=== PATIENT | female | born 1985 | race Caucasian/White ===

== ENCOUNTER 2016-11-13 14:52 | Observation (INO) | payer BC ==
[2016-11-13] MEDS ORDERED: LORazepam INJ* 2 MG/ML 1 ML VIAL ONE ×2 (15:30→17:04)
[2016-11-13] MEDS ORDERED: LORazepam INJ* 2 MG/ML 1 ML VIAL IV PUSH ONE ×2 (15:43→17:12)
[2016-11-13] MEDS ORDERED: Acetaminophen SUPP* 650 MG SUPP ONE (15:44)
[2016-11-13] MEDS ORDERED: Acetaminophen SUPP* 650 MG SUPP PR ONE (15:44)
--- NOTE | 2016-11-13 16:32 | ED ---
I, Bob Veliz, scribed for Verónica Villegas MD on 11/13/16 at 1541 . Neurological HPI - HPI Summary HPI Summary: Pt is a 31 year old female presenting with 3 seizures today. Hx from mom as pt is postictal. Per mom, pt has had seizures since age 1. Pt has been evaluated at several hospitals including [facility]. pt is followed by Dr. Chowdhury. Pt is currently maintained on Tegretol as she has had sensitivities to other medications. Per mom, pt has a sensitivity to Soy and this is commonly the trigger to seizures. 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 Pt was at school today when she had a seizure. Pt woke and returned to baseline. Mom states BG checked by EMS and was normal. Pt signed off and mom sohan home. Mom states at home she had an additional seizure she witnessed and perhaps one when she mom went outside. Pt transported by EMS. Pt was in ED and I was called to room for active tonic/clonic seizure. pt was given Ativan. Mom states pt has not been sick although was noted to have a temp 100.8 in ED. Pt without recent congestion, sob, cough .Pt with a rash on her face mom states occurs when she eats soy. Mom also reports the [employer] of the college sent an email yesterday to faculty, staff and students that there was a student at [facility] with a dx of meningitis. Pt without known contacts. no flu vaccine this year. Pt ate a new food from [employer] yesterday and mom concerned contained soy. - History of Current Complaint Chief Complaint: EDSeizure Stated Complaint: ALLERGIC REACTION/SEIZURES Hx Obtained From: Family/Steam Tunnel Feeder Hx Last Menstrual Period: Jun 22, 2016 Onset/Duration: Sudden Onset, Started hours ago Timing: Intermittent Episodes Lasting: - 3-5min Seizure Severity: Moderate Number of Seizures: 4 Pain Intensity: 7 Frequency: Episodes Lasting ____ (in Mins/Days/Weeks/Years) Aggravating: Unknown, Fever Alleviating: Spontanious Resolution Associated Signs and Symptoms: Positive: Fever TPA Considered: No Related Hx: Seizure - Allergy/Home Medications Allergies/Adverse Reactions: Allergies Allergy/AdvReac Type Severity Reaction Status Date / Time Cephalosporins Allergy Unknown Verified 11/13/16 16:40 Reaction Details Lamotrigine [From Lamictal] Allergy Unknown Verified 11/13/16 16:40 Reaction Details Levetiracetam [From Keppra] Allergy Unknown Verified 11/13/16 16:40 Reaction Details Soy Allergy Allergy Rash Verified 07/07/16 18:01 Valproic Acid [From Depakote] Allergy Altered Verified 07/07/16 18:01 Mental Status Wheat Bran Allergy Rash Verified 07/07/16 18:01 dairy Allergy Rash Uncoded 07/07/16 18:01 Home Medications: Home Medications carBAMazepine TAB(*) [TEGretol TAB(*)] 200 mg PO BID 11/13/16 [History Confirmed 11/13/16] PMH/Surg Hx/FS Hx/Imm Hx Previously Healthy: No Endocrine/Hematology History: Denies: Hx Anticoagulant Therapy Respiratory History: Denies: Hx Asthma Neurological History: Reports: Hx Seizures Denies: Hx Transient Ischemic Attacks (TIA) - Surgical History Surgery Procedure, Year, and Place: None Infectious Disease History: No Infectious Disease History: Denies: Traveled Outside the [place] in Last 30 Days - Family History Known Family History: Positive: None Negative: Cardiac Disease Family History: no cardiovascular issues reported in family lineage - Social History Occupation: Employed Full-time Lives: Alone - currently with mom Alcohol Use: Occasionally Hx Substance Use: No Substance Use Type: Reports: None Hx Tobacco Use: No Smoking Status (MU): Never Smoked Tobacco Have You Smoked in the Last Year: No Review of Systems - ROS Summary Review of Systems Summary: limited second to pt postical on first exam Completed after exam of second exam Positive: Fever, Fatigue ENT: Negative Cardiovascular: Negative Negative: Chest Pain Negative: Shortness Of Breath, Cough Negative: Vomiting, Nausea Musculoskeletal: Negative Positive: Rash - facial rash - reports food allergy Neurological: Other - Seizures Psychological: Normal All Other Systems Reviewed And Are Negative: Yes Physical Exam Triage Information Reviewed: Yes Vital Signs On Initial Exam: Initial Vitals Temp Pulse Resp BP Pulse Ox 100.7 F 121 20 136/85 98 11/13/16 15:10 11/13/16 15:10 11/13/16 15:10 11/13/16 15:10 11/13/16 15:10 Vital Signs Reviewed: Yes Completion Of Physical Exam Limited Due To: Altered Mental Status - postictal, s /p ativan Skin: Positive: Warm, Skin Color Reflects Adequate Perfusion, Dry, Other - Pt with butterfly appearing rash on nasal bridge, cheeks - red, slightly raised Head/Face: Positive: Normal Head/Face Inspection Eyes: Positive: Normal, EOMI, CELESTE ENT: Positive: Pharynx normal, TMs normal. Negative: Nasal congestion Neck: Positive: Supple, Nontender, No Lymphadenopathy Respiratory/Lung Sounds: Positive: Clear to Auscultation, Breath Sounds Present. Negative: Wheezes Cardiovascular: Positive: Normal, RRR Abdomen Description: Positive: Nontender, No Organomegaly, Soft Bowel Sounds: Positive: Present Musculoskeletal: Positive: Normal, Strength/ROM Intact Neurological: Positive: Other - Pt post-ictal for tonic/clonic seizure s/p ativan - unable to cooperate with hx/exam Psychiatric: Positive: Other AVPU Assessment: Verbal (Reponds To) - [place] Coma Scale Best Eye Response: 3 - To Speech Best Motor Response: 5 - Purposeful Movement Best Verbal Response: 4 - Confused Coma Scale Total: 15 Procedures - Lumbar Puncture Procedural Sedation: no Position: Lateral Decubitus Aseptic Technique: Local Anesthesia, Lidocaine Anesthesia Used: 1.0% Lido Spinal Needle Used: 24 Gauge Lumbar Puncture Note: Consent obtained and signed by pt who A+Ox3 and mother at bedside risks and benefits discussed Time out completed 18:45 Pt placed in left lateral recumbent position, knees flexed Under sterile conditions, lumbar processes identified Placed 2 ml of 1% lidocaine Using landmarks, 24 gauge spinal need inserted. + entered space on 1st attempted Total 4ml clear spinal fluid across 4 bottles. stylette replaced and needle withdrawn. bandaid placed. Pt tolerated well Pt supine mom escorted back to room No immediate complications noted Diagnostics - Vital Signs Vital Signs Temp Pulse Resp BP Pulse Ox 11/13/16 15:10 100.7 F 121 20 136/85 98 - Laboratory Result Diagrams: 11/13/16 16:10 11/13/16 16:10 Lab Statement: Any lab studies that have been ordered have been reviewed, and results considered in the medical decision making process. - CT Brain CT CT Interpretation Completed By: Radiologist - IMPRESSION: No intracranial mass or hemorrhage is noted. Limited study due to lack of patient cooperation. Re-Evaluation - Re-Evaluation First Eval Re-Evaluation Time: 16:30 Comment: Pt awake, assisted with hx. Pt report mild headache and feeling fatigued. D/w awaiting labs and futher eval. Pt temp improved following APAP. Pt and mother feel strongly no additoinal seizure medication at this time - awaiting tegretol level. Will continue to monitor Second Eval Re-Evaluation Time: 17:00 Change: Worse - Pt with recurrent tonic/clonic sx - ATivan given. lasted 3 min. now postical. Pt incontinent to urine Will check CT head, d/w mom LP, will d/w neurology Third Eval Re-Evaluation Time: 17:45 Comment: Pt continues somulent. D/w mom regarding LP - mom requesting to speak with neurology first. Awaiting CT result. Will continue to monitor Fourth Eval Re-Evaluation Time: 18:10 Change: Improved Comment: CT neg acute process. Neurology at bedside. Pt awake and appropriate. Pt and mom okay with plan for LP - cosent reviewed and signed by pt and mom Fifth Eval Re-Evaluation Time: 19:00 Change: Improved - Pt tolerated procedure well Refusing abx pending LP results If pt again with sz, okay for fosphenytoin as recommended by neurology Pt also consents to abx (not ceftriaxone) if + LP Course/Dx - Course Course Of Treatment: Pt seized again at approximately 17:00. She was administered Ativam. Assessment/Plan: Pt with h/o seizures, on tegretol. Pt with recurrent 4 seizures today. Pt also noted to have low grade temp. Pt works in college environment and received a warning email regarding meningitis case in community. Pt did not receive flu vaccine. Mom resistant to additional seizure medications at this time. Will check labs, IVF, APAP, urine, , cbc/cmp , tele, close monitoring - Diagnoses Provider Diagnoses: Recurrent seizures, Fever - Physician Notifications Discussed Care of Patient With: Dr. Solano [id number] - will eval pt, recommend fosphytoin, agree with LP. Dr Villegas [id number] - Will accept pt admission - aware LP results pending Instructed by Provider To: Admit As Inpatient - Critical Care Time Critical Care Time: 30-74 min Discharge - Discharge Plan Condition: Fair Disposition: ADMITTED TO [facility] documentation as recorded by the Jose Alfredo troncoso Adam accurately reflects the service I personally performed and the decisions made by me, Verónica Villegas MD.
[2016-11-13 16:43] LABS: Albumin 3.8 g/dL (3.2-5.2); BUN/Creatinine Ratio 15.5 (8-20); Calcium 8.4 mg/dL (8.6-10.3); EGFR African American 100.4 (>60); EGFR Non-African American 78.1 (>60); Globulin 2.5 g/dL (2-4); Magnesium 2.4 mg/dL (1.9-2.7); Potassium 3.7 mmol/L (3.5-5.0); Total Bilirubin 0.3 mg/dL (0.2-1.0); Total Protein 6.3 g/dL (6.4-8.9)
[2016-11-13 17:06] LABS: Carbamazepine 7.9 mcg/mL (4.0-12.0)
[2016-11-13 17:10] LABS: Hematocrit 36 % (35-47); Hemoglobin 11.9 g/dl (12.0-16.0); Mean Corpuscular HGB Conc 33 g/dl (31-36); Mean Corpuscular Hemoglobin 35 pg (27-31); Mean Platelet Volume 8 um3 (7.4-10.4); Red Blood Count 3.39 10^6/ul (4.0-5.4); Red Cell Distribution Width 13 % (10.5-15); White Blood Count 9.7 10^3/ul (3.5-10.8)
[2016-11-13 17:11] LABS: Add Diff/Slide Review? Slide Review Added; Comments Flag Yes; Mean Corpuscular Volume 105 fL (80-97)
[2016-11-13] MEDS ORDERED: NS 0.9% 1000 ML* 1,000 ML IV ONE (17:26)
--- NOTE | 2016-11-13 18:11 | RAD ---
Indication: Seizure-like activity. CT of the brain was performed without IV contrast. Motion artifact in left cooperation limits examination. Ventricular structures are midline. No midline shift is noted. The extra-axial spaces are unremarkable. There is no evidence of intracranial mass or hemorrhage. No other high or low density lesions are identified. Mastoid air cells and paranasal sinuses are otherwise unremarkable. IMPRESSION: No intracranial mass or hemorrhage is noted. Limited study due to lack of patient cooperation.
[2016-11-13] MEDS ORDERED: Acetaminophen TAB* 325 MG PO ONE (18:50)
[2016-11-13] MEDS ORDERED: NS 0.9% 1000 ML* 2,000 ML IV ONE (19:03)
[2016-11-13 19:13] LABS: Body Fluid Appearance Clear
[2016-11-13 19:17] LABS: Body Fluid Appearance Clear
[2016-11-13 19:23] LABS: CSF Glucose 84 mg/dL (40-70)
[2016-11-13 19:29] LABS: BF RBC Count #1 0; BF RBC Count #2 0; BF WBC Count #1 0; BF WBC Count #2 0; Body Fluid WBC 0 /mcL; RBC counts within 6%? Yes; WBC counts within 15%? Yes
[2016-11-13 19:44] LABS: BF RBC Count #1 405; BF RBC Count #2 391; BF WBC Count #1 0; BF WBC Count #2 0; Body Fluid WBC 0 /mcL; WBC counts within 15%? Yes
[2016-11-13 19:45] LABS: Body Fluid Total Cells Counted 1; RBC counts within 6%? Yes
--- NOTE | 2016-11-13 20:02 | CONSULT ---
Consult Consult: 11/13/16 neurology consult 31 yo RHF w/ longstanding seizure disorder, presenting with multiple recurrent seizures today. She is on CMZ (dose unknown; states takes bid, with an acute therapeutic level of 7.9) as her maintenance anti epileptic; apparently trials of several other AEDs a number of years ago (LTG, VPA, LEV) were brief and intolerance limited. I reviewed several [address] Taylor; they were overall similar, noting CMZ used in a 6-800MG total daily range, split bid , with 7-800mg dizziness limited remotely. He also noted a perception by the patient and/or mother re seizures brought on by GI or food issues, that she had negative testing for celiac, and had seen multiple specialists (allergy, endo, derm) for rashes. Her mother thinks the seizures are brought on by consuming soy containing foods, and she has a facial rash. She had her first seizure at 1 years of age, was put on CMZ a few years later for focal seizures (mother and patient cannot clarify diagnosis further, or prior workup), then from 3rd-11th grade was seizure free off meds. Prior to today, her last seizure was 2-3 years ago, she was at [facility] at the time ; she had seizure related workup at [facility] in 2010. She works and drives. Her epilepsy workup is unknown to me. She follows with Dr Chowdhury; her mother suggests prior evals at [facility] and in [facility] (perhaps 5 years ago), as well as more remote neuro care as a child in [place], [place] and [place]. She apparently had a witnessed (? convulsive; no clear description) seizure at work today. Her mother brought her home, where she had a second episode, this one consisting of staring, getting red in the face and stiffening. She was brought to the ED, where she had 2 separate convulsive episodes, one with urine incontinence, witnessed by her mother and the ED; she was loaded with benzos. She was initially febrile on arrival, then defervesced. Her mother had concerns re LP and loading a second AED prior to neuro involvement formally. Her mother also suggested that she had complained of not feeling well and thought she had low blood sugar (no formal reading and no history of diabetes however). Allergies/Meds - per mar PMH - per hpi; no surgeries or other medical diseases FH - no epilepsy or seizures SH - teacher; no tobacco; etoh or drugs; accompanied by mother, who provides much of history ROS - 10 point review limited by altered mental status/limited cooperation general Examination: no apparent distress, no edema, female of stated age, malar erythematous rash on cheeks, bridge of nose, chin Neurologic Examination Mental Status: sleepy but work easily, told me name and knew she was in a hospital but could not name it; affect flat, no clear neglect, fluent speech but mumbled and made unclear comments at times Cranial Nerves: Funduscopy and formal field testing cooperation limited, pupils reactive and symmetric, otherwise III-XII intact Motor: normal bulk, tone and power save initial left biceps/triceps poor effort vs weakness; no drift, involuntary movements or tremor Sensory: vibration and touch are intact Reflexes: 2 throughout symmetrically. Plantar responses are equivocal to flexor Coordination: finger to nose is accurate Gait: deferred Serologies: LFTs, bun/cr are all normal or negative; CBC ok save MCV 105, acidotic, Na 125 CSF WBC 4 1, G 84, P 28, gram stain neg (labs returning post initial consult) Priors: ESR and NATY nl in 2011 Imaging: Head CT reviewed and negative, albeit somewhat motion limited (prior 2011 negative per report as well) Impression: 31 yo RHF w/ longstanding ? localization related seizure disorder, presenting with multiple recurrent seizures today despite therapeutic dose of maintenance CMZ. Her exam is modestly cooperation limited and likely post ictal; she has received benzos as well; her exam and GEAR FINISHER imaging are non localizing. She is hyponatremic, has a facial rash (mother suggests latter is food allergy related ) and was initially febrile; the ED and I concurred with: 1. CSF analysis to rule out bacterial meningitis 2. loading of a second AED - given her reported prior intolerance to other IV agents such as LEV and VPA; we chose phenytoin 20mg/kg load; then can start 100mg tid po vs IV depending on mental status 3. gentle correction of Na; unclear if SIADH or alternate cause 4. will update Dr Chowdhury and obtain further background history in am
[2016-11-13 20:12] LABS: Urine Bacteria 1+ (Absent); Urine Bilirubin Negative (Negative); Urine Glucose Negative (Negative); Urine Nitrite Negative (Negative)
[2016-11-13] MEDS ORDERED: carBAMazepine TAB(*) 200 MG PO SCH (23:00)
[2016-11-14] MEDS: NS 0.9% 1000 ML* 1,000 ML IV SCH ×2 (00:09→10:43)
[2016-11-14 05:37] LABS: BUN/Creatinine Ratio 8.5 (8-20); Calcium 8.3 mg/dL (8.6-10.3); EGFR African American 121.9 (>60); EGFR Non-African American 94.8 (>60); Potassium 3.4 mmol/L (3.5-5.0)
--- NOTE | 2016-11-14 08:36 | HP ---
HISTORY AND PHYSICAL: DATE OF ADMISSION: 11/13/16 PRIMARY CARE PHYSICIAN: Dr. Igor Welch. CHIEF COMPLAINT: Seizure. HISTORY OF PRESENT ILLNESS: The patient is a 31-year-old woman who apparently, at work today, experienced a grand mal seizure. She feels this was secondary to her sugar being low and recently having some ham and soy products which seem to have affected her. In fact, she says that the ham she just had gave her a significant rash on her face. She then went her to apartment where she stays with her mother and had two subsequent seizures in front of her mother who brought her to the ER because of this. She had no tongue bitting, no urinary and no bowel incontinence. She was, however, somewhat confused afterwards. In the ER, the patient did have a Tegretol level, which was unremarkable. She has had no other recent infections or anything else to explain why she had lowered her seizure threshold. The patient was seen in consult already by Neurology and had an LP which was unremarkable. PAST MEDICAL HISTORY: Significant for seizure disorder as noted. ALLERGIES: CEPHALOSPORINS, LAMICTAL, KEPPRA, SOY ALLERGIES, VALPROIC ACID, WHEAT BREAD, AND DAIRY. CURRENT MEDICATIONS: Tegretol 400 mg twice daily. FAMILY HISTORY: Mother alive at 60 and well. Father alive, 73, has hypertension. She is an only child. SOCIAL HISTORY: No tobacco, occasional wine, no recreational drug use. She is a teacher at [employer]. She is not . She has no children. REVIEW OF SYSTEMS: A 14-point review of systems was completed with the patient. All pertinent positives and negatives are in the history of present illness, otherwise it is negative. PHYSICAL EXAMINATION GENERAL: A pleasant woman lying in bed, in no acute distress. VITAL SIGNS: Temperature 99.3 degrees, heart rate 95 beats per minute, respiratory rate 23 breaths per minute, pulse ox 98%, blood pressure 108/63. HEENT: Normocephalic, atraumatic. Pupils equal, round, and reactive to light. Moist mucous membranes. NECK: Supple. No JVD, bruits, palpable thyroid, or lymphadenopathy. CHEST: Clear to auscultation and percussion bilaterally. CARDIOVASCULAR: S1 and S2 appreciated. Regular rate and rhythm. ABDOMEN: Positive bowel sounds in all 4 quadrants. Soft, nontender, and nondistended. EXTREMITIES: No cyanosis, clubbing, or edema; +2 peripheral pulses bilaterally. NEURO: Alert and oriented x3. Moves all extremities. SKIN: Erythematous rash on her forehead and cheeks that appears quite angry. DIAGNOSTIC STUDIES/LAB DATA: White count 9.7, hemoglobin 11.9, hematocrit 36, platelets 157. Sodium 125, potassium 3.7, chloride 93, CO2 16, BUN 13, creatinine 0.84, and glucose 120. UA has +3 WBC's, +3 RBC's, plus squamous cells and epithelial cells are present. CSF shows no cells. Tegretol within normal limits. Flu was negative. Brain CT shows no intracranial mass or hemorrhages noted. Limited study due to lack of the patient's cooperation. ASSESSMENT AND PLAN: 1. Seizure. The patient is unwilling to take a second antiepileptic drug at this time. I explained to her that seizures can actually be fatal, and I prefer her not to have another one. She states she will only take it if she does have another seizure tonight. She understands the risk of not taking the same. 2. Possible urinary tract infection. Again discussed with the patient. She does not want to take an antibiotic either. Again, she understands the risk of not treating. This may have lowered her threshold. 3. FEN. Regular diet. 4. DVT prophylaxis. She is young and ambulatory. 5. The patient is a full code. TIME SPENT: Over 75 minutes were spent on this H and P, more than 40 minutes of which were spent in direct [id number] contact with the patient, evaluation , physical exam, counseling, and coordination of care. CC: Dr. Igor Welch.* [id number]/[facility] #: [id number] [facility] HOSPITALBassem
[2016-11-14] MEDS ORDERED: carBAMazepine TAB(*) 200 MG PO SCH (09:00)
[2016-11-14] MEDS ORDERED: CARBAMAZEPINE 200 MG PO SCH (09:07)
--- NOTE | 2016-11-14 09:55 | PN ---
Progress Note - Progress Note SOAP: 11/14/16 neurology follow up 31 yo RHF w/ longstanding seizure disorder (on cmz; follows with dr jimenez), presenting yesterday with multiple recurrent seizures. Overnight, no further events. Back to baseline; does not recall seizures yesterday besides not feeling quite right at work prior to first one. Denies aura in general. Recalls seeing Dr Oscar Denise at [facility] ? circa 2011; having some testing that was not definitive; another eval/opinion at [place] around the same time, results unknown. Unclear to me if ever had LTM. Spoke with Dr Jimenez by phone, and with patient, on cmz 400mg bid at baseline, compliant and med is well tolerated ; has some med and food allergies or sensitivities and was intolerant of several other AED trials as per my consult. Exam non localizing Na 125 137; ua appears dirty but nit/LE essentially negative No updated csf tests - 0 wbc, 400 rbc Impression: 31 yo RHF w/ longstanding ? localization related seizure disorder, presenting with multiple recurrent seizures yesterday despite therapeutic dose of maintenance CMZ. She had hyponatremia on arrival that has rapidly corrected; whether the initial value was spurious, or reflected siadh, cmz effect, etc is unclear. She has a facial rash that has occurred in the past, apparently been worked up, and which her mother suggests is food allergy related. She was initially febrile, and had an LP by the ED that appears negative preliminarily for bacterial meningitis. She is back to baseline, and as long as csf tests remain negative, should be neurologically stable for discharge and follow up with Dr Jimenez. Longer term her options might include further CMZ titration (level yest was middling) vs adding on or swapping out to a different agent (several remote trials of common agents were apparently tolerance limited in the past). 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 She will also need to restrict driving; the exact duration will depend on her treatment response and is to be determined by her and Dr Jimenez; we reviewed that [facility] recommends a year of voluntary restriction after a seizure.
[2016-11-14 16:42] VITALS: BP 102/71
--- NOTE | 2016-11-14 22:28 | DS ---
DISCHARGE SUMMARY: DATE OF ADMISSION: 11/13/16 DATE OF DISCHARGE: 11/14/16 PRIMARY CARE PROVIDER: Dr. Igor Welch. PRIMARY NEUROLOGIST: Dr. Chowdhury. CONSULTING NEUROLOGIST: Dr. Berger. DISCHARGING PROVIDER: SNEHA Espinoza SUPERVISING PHYSICIAN: Dr. Lillian Otero.* (DICTATED BY SNEHA ESPINOZA) PRIMARY DISCHARGE DIAGNOSIS: Seizure. SECONDARY DISCHARGE DIAGNOSES: 1. Hyponatremia - unsure if initial reading represented a lab error but sodium rapidly corrected. 2. Urinary tract infection with 50,000 to 75,000 Escherichia coli. 3. Fever. 4. Multiple allergies. 5. Facial rash. DISCHARGE MEDICATIONS: Tegretol 400 mg p.o. b.i.d. Medication changes: None. HOSPITAL IMAGIN. CT of the brain shows no intracranial mass or hemorrhage. No other acute findings. 2. EKG shows sinus rhythm with rate of approximately 120 beats per minute. HOSPITAL COURSE: This is a 31-year-old female with known seizure disorder and multiple environmental and food allergies, who presented to the emergency department after multiple seizures yesterday. The patient has multiple food allergies and had recently started using a new salad dressing and noted a facial rash that developed on Friday, which can be typical for her allergy symptoms. Then, yesterday while at work experienced a seizure and then two additional ones at home and two in the emergency department. Her seizure disorder has historically been well controlled on Tegretol and she was followed by Dr. Chowdhury. It is several years since her last seizure. The patient and her mother explained that historically her seizures have been allergy mediated and generally when she has exposure to a new allergen, she has had prior seizures. The patient reports compliance with her antiepileptics and reports no other new medications. The patient was admitted to observation overnight and had no new neurologic symptoms or recurrent seizures. The patient was resistant to initiating any additional antiepileptics during her hospital stay or at the time of discharge. She was seen by consulting neurologist, Dr. Berger, who had suggested increasing her Tegretol or trialing an adjunct medication. The patient was resistant to both of these ideas. Of note, the patient had intermittent fever during her hospitalization. She underwent lumbar puncture, which was unremarkable. She has no focal complaints. Her urinalysis was suggestive of a urinary tract infection with leuk esterase and white blood cells present. Culture grew 50,000 to 75,000 colonies of E. coli. Due to the patient's multiple allergies, she is quite resistant to the idea of initiating an antibiotic that may not be absolutely necessary. Due to low colony counts, antibiotics were avoided. Recommended adequate hydration and to return for reevaluation if she develops any symptoms consistent with urinary tract infection. DISPOSITION: The patient is being discharged from the hospital without any changes to her home medications. She would like to discuss this with her primary neurologist before initiating any change. Of note, she was hyponatremic during her hospital stay but this corrected quite rapidly. Initial sodium was 125 and corrected to 137 on the day of discharge. It seems that one of those lab values is likely inaccurate and recommended repeating basic metabolic panel along with Tegretol levels in approximately 3 to 5 days. SNEHA ESPINOZA CC: Dr. Igor Welch; Dr. Chowdhury * [id number]/[facility] #: [id number] [facility]
== END 2016-11-14 17:25 | disposition home or self-care (01) ==
LOC: ED 14:52 → MEDTELE 21:06
PROVIDERS: ADMIT Internal Medicine; ATTEND Hospitalist
DX: G40.909 Epilepsy, unspecified, not intractable, without status epilepticus (principal); E87.1 Hypo-osmolality and hyponatremia; N39.0 Urinary tract infection, site not specified; B96.20 Unspecified Escherichia coli [E. coli] as the cause of diseases classified elsewhere; R50.9 Fever, unspecified; R21 Rash and other nonspecific skin eruption; Z23 Encounter for immunization
CPT/HCPCS: 36415; 70450; 80048; 80053; 80156; 81003; 81015; 82945; 83735; 84157; 85025; 86703; 87040; 87070; 87077; 87086; 87186; 87205; 87502; 89051; 96374; 99285; A9270-GY; G0378; J2060

== ENCOUNTER 2018-02-22 15:52 | Emergency (ER) | payer BC ==
[2018-02-22] MEDS ORDERED: NS 0.9% 1000 ML* 1,000 ML IV SCH (16:15)
[2018-02-22 16:42] LABS: ABS Basophils 0 10^3/ul (0-0.2); ABS Eosinophils 0 10^3/ul (0-0.6); ABS Lymphocytes 0.5 10^3/ul (1.0-4.8); ABS Monocytes 0.4 10^3/ul (0-0.8); ABS Nucleated RBC 0 10^3/ul; Eosinophil % 0.3 % (0-6); Hematocrit 43 % (35-47); Hemoglobin 14.9 g/dl (12.0-16.0); Lymphocyte % 10.4 % (25-47); Mean Corpuscular HGB Conc 35 g/dl (31-36); Mean Corpuscular Hemoglobin 35 pg (27-31); Mean Corpuscular Volume 103 fL (80-97); Mean Platelet Volume 8.5 um3 (7.4-10.4); Nucleated Red Blood Cells % 0; Platelet Count 208 10^3/ul (150-450); Red Cell Distribution Width 13 % (10.5-15)
[2018-02-22 16:46] LABS: INR 0.92 (0.77-1.02)
[2018-02-22 16:56] LABS: EGFR Non-African American 82.1 (>60)
[2018-02-22 17:21] LABS: Urine Appearance Clear; Urine Blood Negative (Negative); Urine Color Yellow; Urine Ketones Negative (Negative); Urine Protein 1+(30 mg/dL) (Negative); Urine Specific Gravity 1.015 (1.010-1.030); Urine Urobilinogen Negative (Negative)
--- NOTE | 2018-02-22 17:31 | ED ---
Alysha Alberts Emily, scribed for Charlie Grant MD on 02/22/18 at 1636 . Complex/Multi-Sys Presentation - HPI Summary HPI Summary: This patient is a 32 year old F BIBA to [facility] accompanied by mother with a chief complaint of seizure like activity that began at approximately 1500. The patient rates the pain 0/10 in severity. Symptoms aggravated by nothing. Symptoms alleviated by nothing. Patient reports numbness in fourth and fifth right fingers and diarrhea. The patient denies abd pain, any changes in sleep, fever, chills, and nasal discharge. Mother reports that upon patients waking this morning, she was in a brain fog . Per mother, the patient became tonic this afternoon and experienced one seizure like episode lasting about 2 minutes, and after being assisted to the couch had a second seizure like episode. Mother states that the brain fog is an allergic reaction to food. Mother reports that the patients seizure like episodes that occurred today are not similar to previous seizures. Patient reports a history of seizures. Mother reports that there are drug users nearby, who smoke drugs, to the patients apartment. The mother is concerned that there was secondary smoke from these drug users that resulted in the brain fog or seizures. The patient reports she is on Tegretol 400 mg twice a day for her seizures. She reports that her last seizure was over one year ago. - History Of Current Complaint Time Seen by Provider: 02/22/18 16:04 Hx Obtained From: Patient Onset/Duration: Sudden Onset, Lasting Minutes, Resolved Timing: Intermittent, Lasting:, Minutes Severity Currently: Moderate Severity Initially: Mild Aggravating Factor(s): Nothing Alleviating Factor(s): Nothing Associated Signs And Symptoms: Positive: Other - Positive numbness in fourth and fifth right fingers and diarrhea. Negative abd pain, any changes in sleep, fever, chills, and nasal discharge. - Allergies/Home Medications Allergies/Adverse Reactions: Allergies Allergy/AdvReac Type Severity Reaction Status Date / Time Cephalosporins Allergy Unknown Verified 02/22/18 16:02 Reaction Details lamotrigine [From Lamictal] Allergy Unknown Verified 02/22/18 16:02 Reaction Details levetiracetam [From Keppra] Allergy Unknown Verified 02/22/18 16:02 Reaction Details milk Allergy Rash Verified 02/22/18 16:02 soy Allergy Rash Verified 06/03/18 16:02 valproic acid Allergy Altered Verified 02/22/18 16:02 Mental Status wheat Allergy Rash Verified 02/22/18 16:02 PMH/Surg Hx/FS Hx/Imm Hx Previously Healthy: No Endocrine/Hematology History: Denies: Hx Anticoagulant Therapy Respiratory History: Denies: Hx Asthma Sensory History: Reports: Hx Contacts or Glasses - contacts Opthamlomology History: Reports: Hx Contacts or Glasses - contacts Neurological History: Reports: Hx Seizures Denies: Hx Transient Ischemic Attacks (TIA) - Surgical History Surgery Procedure, Year, and Place: None Infectious Disease History: No Infectious Disease History: Denies: Traveled Outside the [place] in Last 30 Days - Family History Known Family History: Negative: Cardiac Disease Family History: no cardiovascular issues reported in family lineage - Social History Occupation: Employed Full-time Lives: Alone Alcohol Use: Daily Alcohol Amount: 2 glasses of wine per night Hx Substance Use: No Substance Use Type: Reports: None Hx Tobacco Use: No Smoking Status (MU): Never Smoked Tobacco Have You Smoked in the Last Year: No Review of Systems Negative: Fever, Chills Negative: Nasal Discharge Positive: Diarrhea. Negative: Abdominal Pain Neurological: Other - Positive seizure like activity. Negative changes in sleep Positive: Numbness All Other Systems Reviewed And Are Negative: Yes Physical Exam - Summary Physical Exam Summary: General: well-appearing, no pain distress Skin: warm, color reflects adequate perfusion, dry Head: normal Eyes: EOMI, CELESTE ENT: normal Neck: supple, nontender Respiratory: CTA, breath sounds present Cardiovascular: RRR Abdomen: soft, nontender Bowel: present Musculoskeletal: Patient reports decreased sensation in fourth and fifth fingers. Good sensation and ROM. strength/ROM intact Neurological: sensory/motor intact, A&O x3 Psychological: affect/mood appropriate Triage Information Reviewed: Yes Vital Signs On Initial Exam: Initial Vitals Temp Pulse Resp BP Pulse Ox 100 F 98 18 136/86 100 02/22/18 16:02 02/22/18 16:02 02/22/18 16:02 02/22/18 16:02 02/22/18 16:02 Vital Signs Reviewed: Yes Diagnostics - Vital Signs Vital Signs Temp Pulse Resp BP Pulse Ox 02/22/18 16:02 100 F 98 18 136/86 100 - Laboratory Lab Results: Lab Results 02/22/18 02/22/18 02/22/18 Range/Units 16:31 16:31 16:31 WBC 5.0 (3.5-10.8) 10^3/ul RBC 4.20 (4.0-5.4) 10^6/ul Hgb 14.9 (12.0-16.0) g/dl Hct 43 (35-47) % MCV 103 H (80-97) fL MCH 35 H (27-31) pg MCHC 35 (31-36) g/dl RDW 13 (10.5-15) % Plt Count 208 (150-450) 10^3/ul MPV 8.5 (7.4-10.4) um3 Neut % (Auto) 81.0 (38-83) % Lymph % (Auto) 10.4 L (25-47) % [place] % (Auto) 7.8 H (0-7) % Eos % (Auto) 0.3 (0-6) % Baso % (Auto) 0.5 (0-2) % Absolute Neuts (auto) 4.0 (1.5-7.7) 10^3/ul Absolute Lymphs (auto) 0.5 L (1.0-4.8) 10^3/ul Absolute Monos (auto) 0.4 (0-0.8) 10^3/ul Absolute Eos (auto) 0 (0-0.6) 10^3/ul Absolute Basos (auto) 0 (0-0.2) 10^3/ul Absolute Nucleated RBC 0 10^3/ul Nucleated RBC % 0 INR (Anticoag Therapy) 0.92 (0.77-1.02) APTT 26.3 (26.0-36.3) seconds Sodium 130 L (139-145) mmol/L Potassium Pending Chloride 95 L (101-111) mmol/L Carbon Dioxide 25 (22-32) mmol/L Anion Gap Pending BUN 14 (6-24) mg/dL Creatinine 0.80 (0.51-0.95) mg/dL Est GFR ( Amer) 105.6 (>60) Est GFR (Non-Af Amer) 82.1 (>60) BUN/Creatinine Ratio 17.5 (8-20) Glucose 129 H (70-100) mg/dL Lactic Acid (0.5-2.0) mmol/L Calcium 9.2 (8.6-10.3) mg/dL Total Bilirubin 0.50 (0.2-1.0) mg/dL AST Pending ALT 25 (7-52) U/L Alkaline Phosphatase 49 (34-104) U/L Total Creatine Kinase 157 (10-223) U/L CK-MB (CK-2) 1.7 (0.6-6.3) ng/mL C-Reactive Protein 1.19 (< 5.00) mg/L Total Protein 8.3 (6.4-8.9) g/dL Albumin 5.0 (3.2-5.2) g/dL Globulin 3.3 (2-4) g/dL Albumin/Globulin Ratio 1.5 (1-3) TSH 3.52 (0.34-5.60) mcIU/mL Beta HCG, Quant < 0.60 mIU/mL Urine Color Urine Appearance Urine pH (5-9) Ur Specific [place] (1.010-1.030) Urine Protein (Negative) Urine Ketones (Negative) Urine Blood (Negative) Urine Nitrate (Negative) Urine Bilirubin (Negative) Urine Urobilinogen (Negative) Ur Leukocyte Esterase (Negative) Urine WBC (Auto) (Absent) Urine RBC (Auto) (Absent) Ur Squamous Epith Cells (Absent) Urine Bacteria (Absent) Urine Glucose (Negative) Urine Ascorbic Acid (Negative) Salicylates < 2.50 (<30) mg/dL Acetaminophen < 15 mcg/mL Carbamazepine 13.9 H (4.0-12.0) mcg/mL Serum Alcohol < 10 (<10) mg/dL 02/22/18 02/22/18 Range/Units 16:31 17:00 WBC (3.5-10.8) 10^3/ul RBC (4.0-5.4) 10^6/ul Hgb (12.0-16.0) g/dl Hct (35-47) % MCV (80-97) fL MCH (27-31) pg MCHC (31-36) g/dl RDW (10.5-15) % Plt Count (150-450) 10^3/ul MPV (7.4-10.4) um3 Neut % (Auto) (38-83) % Lymph % (Auto) (25-47) % [place] % (Auto) (0-7) % Eos % (Auto) (0-6) % Baso % (Auto) (0-2) % Absolute Neuts (auto) (1.5-7.7) 10^3/ul Absolute Lymphs (auto) (1.0-4.8) 10^3/ul Absolute Monos (auto) (0-0.8) 10^3/ul Absolute Eos (auto) (0-0.6) 10^3/ul Absolute Basos (auto) (0-0.2) 10^3/ul Absolute Nucleated RBC 10^3/ul Nucleated RBC % INR (Anticoag Therapy) (0.77-1.02) APTT (26.0-36.3) seconds Sodium (139-145) mmol/L Potassium Chloride (101-111) mmol/L Carbon Dioxide (22-32) mmol/L Anion Gap BUN (6-24) mg/dL Creatinine (0.51-0.95) mg/dL Est GFR ( Amer) (>60) Est GFR (Non-Af Amer) (>60) BUN/Creatinine Ratio (8-20) Glucose (70-100) mg/dL Lactic Acid 2.4 H* (0.5-2.0) mmol/L Calcium (8.6-10.3) mg/dL Total Bilirubin (0.2-1.0) mg/dL AST ALT (7-52) U/L Alkaline Phosphatase (34-104) U/L Total Creatine Kinase (10-223) U/L CK-MB (CK-2) (0.6-6.3) ng/mL C-Reactive Protein (< 5.00) mg/L Total Protein (6.4-8.9) g/dL Albumin (3.2-5.2) g/dL Globulin (2-4) g/dL Albumin/Globulin Ratio (1-3) TSH (0.34-5.60) mcIU/mL Beta HCG, Quant mIU/mL Urine Color Yellow Urine Appearance Clear Urine pH 7.0 (5-9) Ur Specific [place] 1.015 (1.010-1.030) Urine Protein 1+(30 mg/dl) A (Negative) Urine Ketones Negative (Negative) Urine Blood Negative (Negative) Urine Nitrate Negative (Negative) Urine Bilirubin Negative (Negative) Urine Urobilinogen Negative (Negative) Ur Leukocyte Esterase Negative (Negative) Urine WBC (Auto) Absent (Absent) Urine RBC (Auto) Absent (Absent) Ur Squamous Epith Cells Present A (Absent) Urine Bacteria Absent (Absent) Urine Glucose Negative (Negative) Urine Ascorbic Acid * A (Negative) Salicylates (<30) mg/dL Acetaminophen mcg/mL Carbamazepine (4.0-12.0) mcg/mL Serum Alcohol (<10) mg/dL Result Diagrams: 02/22/18 16:31 02/22/18 16:31 Lab Statement: Any lab studies that have been ordered have been reviewed, and results considered in the medical decision making process. Re-Evaluation - Re-Evaluation First Eval Re-Evaluation Time: 17:18 Change: Unchanged Comment: The patient refused Zonegran Complex Multi-Symp Course/Dx Course Of Treatment: TORI TOOK HER TEGRETOL AT 11AM TODAY. SHE AND HER MOTHER HAVE BEEN IN THE PROCESS OF MOVING WHICH MAY BE A STRESSOR. WELL IN ED. DISCUSSED WITH DR MARX, NEUROLOGY. HE RECOMMENDED GIVING ZONISAMIDE 25MG TONIGHT AND F/U WITH DR CHOWDHURY TOMORROW. I DISCUSSED THIS WITH THE PATIENT AND HER MOTHER. TORI DECLINED ANY OTHER MEDICATION; SHE PREFERS TO CONTIUE HER PRESENT MEDICATION AND F/U WITH DR CHOWDHURY TOMORROW. - Diagnoses Provider Diagnoses: Epilepsy - Physician Notifications Discussed Care Of Patient With: Carlos Marx Time Discussed With Above Provider: 17:09 Instructed by Provider To: Other - Consult with Dr. Marx (neurology) at 1709. He recommends the patient recieve 25 mg of Zonegran Discharge - Sign-Out/Discharge Documenting (check all that apply): Discharge/Admit/Transfer - Discharge Plan Condition: Stable Disposition: HOME Patient Education Materials: Epilepsy (ED) Referrals: Yuri RAPP,Igor Metcalf [Primary Care Provider] - Ward Chowdhury MD [Medical Doctor] - Additional Instructions: FOLLOW UP WITH YOUR NEUROLOGIST, DR CHOWDHURY, TOMORROW. RETURN TO THE EMERGENCY DEPARTMENT FOR ANY WORSENING OF YOUR CONDITION OR QUESTIONS OR CONCERNS. - Billing Disposition and Condition Condition: STABLE Disposition: HOME The documentation as recorded by the Alysha troncoso Emily accurately reflects the service I personally performed and the decisions made by me, Charlie Grant MD.
[2018-02-22 17:58] VITALS: BP 128/74
== END 2018-02-22 17:58 | disposition home or self-care (01) ==
LOC: ED 15:52
DX: G40.909 Epilepsy, unspecified, not intractable, without status epilepticus (principal); Z88.8 Allergy status to other drugs, medicaments and biological substances
CPT/HCPCS: 36415; 80053; 80156; 80320; 80329; 81003; 81015; 82550; 82553; 83605; 84443; 84702; 85025; 85610; 85730; 86140; 99283; G0480